=== PATIENT | female | born 1985 | race Caucasian/White ===

== ENCOUNTER 2019-03-27 18:37 | Emergency (ER) | payer MEDICAID ==
[2019-03-27] MEDS ORDERED: Ondansetron ODT 4 MG TAB ONE (22:00)
--- NOTE | 2019-03-27 22:09 | RAD ---
Acute abdominal series INDICATION: Concern for foreign body COMPARISON: None. FINDINGS: CHEST: LUNGS: Clear. Cardiomediastinal silhouette: Normal. Pleural effusion or pneumothorax: Negative. Pneumoperitoneum: Negative. ABDOMEN: Bowel gas pattern: Unobstructed. Abnormal calcifications: None Osseous structures: No acute osseous abnormality is demonstrated. Additional findings: There are cholecystectomy clips within the right upper quadrant abdomen. There a re displaced clips suspected in the right lower quadrant of the abdomen. IMPRESSION: 1. No acute abnormality.
[2019-03-27 22:53] LABS: Bacteria/HPF 4+ HPF (None Seen); Bilirubin Negative (Negative); Blood, Urine 3+ (Negative); Clarity Turbid (Clear); Glucose, Urine (Dipstick) Normal (Negative); Leukocyte Negative Leu/uL (Negative); Nitrite Negative (Negative); Protein, Urine (Dipstick) 300 mg/dL (Neg-Trace); Renal Epithelial 0-3 HPF (None Seen); Squamous Epithelial None Seen HPF (0-3); Urobilinogen Normal mg/dL (Less than 2)
== END 2019-03-27 23:49 | disposition left against medical advice (07) ==
LOC: ERS 18:37
DX: R10.9 Unspecified abdominal pain (principal); R11.2 Nausea with vomiting, unspecified; J45.909 Unspecified asthma, uncomplicated; F43.10 Post-traumatic stress disorder, unspecified; Z79.899 Other long term (current) drug therapy
CPT/HCPCS: 74022; 81003; 81015; Q0162